=== PATIENT | male | born 1965 | race Two or more races ===

== ENCOUNTER → 2020-08-19 | Outpatient (CLI) | payer OTHER ==
[~2020-08-19] MED LIST: ATENOLOL100 MG PO; LIPITOR TAB 2020 MG PO; METFORMIN HCL500 MG PO; PROTONIX40 MG PO; SODIUM CHLORIDE1 G1 PO; ZESTRIL5 MG PO; ZOFRAN ODT 4 MG4 MG SL
== END ==
LOC: ECHO 12:30
DX: I25.119 Atherosclerotic heart disease of native coronary artery with unspecified angina pectoris (principal); I08.3 Combined rheumatic disorders of mitral, aortic and tricuspid valves
CPT/HCPCS: ECHO; 93306

== ENCOUNTER → 2021-01-06 | Outpatient (CLI) | payer OTHER | LOC: EXRD 13:34 | DX: M79.661 Pain in right lower leg (principal) | CPT/HCPCS: 93922 ==

== ENCOUNTER → 2022-02-06 | Outpatient (CLI) | payer OTHER | LOC: LAB 14:12 | DX: Z20.822 Contact with and (suspected) exposure to COVID-19 (principal) | CPT/HCPCS: U0002 ==